=== PATIENT | male | born 1985 | race Caucasian/White ===

== ENCOUNTER 2024-05-29 10:40 | Outpatient (AMB) | payer OTHER, SELFPAY ==
--- NOTE | 2024-05-29 10:52 | MHC.PC.OV ---
Vital Signs 05/29/24 10:59 Height 5 ft 9 in Weight 193 lb 8 oz BMI 28.6 BP 100/60 Blood Pressure Location Lt brachial Position Sitting Respiration 14 Pulse 90 Pulse Source Pulse Oximeter Temp 98.1 F Temp Source Oral Pulse Oximetry (%) 99 Oxygen Delivery Method Room Air Intake Visit Reasons: TIMERS INSPECTOR/PE Intake Note: establish care Allergies Sulfa (Sulfonamide Antibiotics) Allergy (Intermediate, Verified 05/29/24 10:53) Hives Tobacco use date assessed: 05/29/24 Dental Screening Dental Screen Date: 05/29/24 Did you have a dental visit in the last 12 months?: Yes Did you have a dental problem in the last 6 months where you did not have access to dental care?: No HPI HPI Comments History of Present Illness Details This is a 38-year-old male with a past medical history of alcohol abuse and increase weight presenting to [facility] with me and have a physical exam. He transferred from [facility] primary care. He is overall doing well. He reports no hospitalizations or ER visits. He is working as a stationary equipment mechanic. He has been vaping for years, but he does not smoke cigarettes. He does smoke marijuana. We discussed the impact of vaping on his health, and I encouraged cessation. He previously drank alcohol heavily on and off since high school, but he stopped in 2016 when he noticed he got shaky when he did not drink. Now he only occasionally has a beer or 2. He endorses right knee pain for a couple of years. Pain is intermittent. It bothers him more when he is standing on his feet all day and walking. Sometimes it pops. It has not given out. He denies trauma. No swelling or redness. No numbness or tingling. The patient's PHQ-9 is mildly positive, but he denies depression, and he is not interested in referral or treatment. His last eye exam was Summer 2023. He sees the dentist every 3 months. Declines flu vaccine. He had a tetanus vaccine February 2024 when he required stitches. He received 2 covid-19 vaccines and a booster. ROS: Constitutional: No unexplained weight loss, fever, chills, fatigue or night sweats. Eyes: No vision changes, blurry vision, double vision, eye pain, eye redness, eye discharge. ENT: No hearing loss, sneezing, congestion, runny nose or sore throat. Respiratory: No shortness of breath, cough or sputum production. Cardiovascular: No chest pain, chest pressure or chest discomfort. No palpitations or pedal edema. Gastrointestinal: No anorexia, nausea, vomiting or diarrhea. No abdominal pain or blood in stool. Genitourinary: No dysuria, hematuria, urinary frequency. Denies testicular masses, swelling and pain in the groin. Neurologic: No headache, dizziness, syncope, unilateral weakness, ataxia, numbness or tingling in the extremities. Musculoskeletal: See HPI Hematologic/Lymphatics: No bleeding or bruising. No painful lymph nodes. Skin: No rash or itching. Endocrine: No cold or heat intolerance. No polyuria or polydipsia. Psychiatric: No depression or anxiety. No SI/HI. Physical exam: Constitutional: Alert, in no distress. Head: Normocephalic. Eyes: Pupils are equal, round and reactive to light. Extraocular muscles intact. Ear, Nose and Throat: Canals clear. TMs normal. Normal nasal mucosa. No nasal discharge. No oral lesions. Neck: Supple, Full range of motion. No lymphadenopathy. No palpable thyroid masses. Respiratory: Clear to auscultation. Cardiovascular: S1 S2 regular. No murmurs. Gastrointestinal: Abdomen soft, non-tender, non-distended. Normal bowel sounds. No palpable masses. Genitourinary: Patient declined exam. Neurologic: No focal neurological deficits. Symmetric patellar reflexes. Moves all extremities spontaneously. Sensation intact bilaterally. Skin: No rashes or lesions. Musculoskeletal: Mild right knee crepitus. Full range of motion of the knees. Knee strength 5/5 bilaterally. Negative Karan's maneuver bilaterally. Normal gait. Extremities: Warm and well perfused. No clubbing, cyanosis or edema. 3+ peripheral pulses bilaterally. Psychiatric: Normal mood and affect [facility] Medical History (Updated 05/29/24 @ 11:45 by KAYLIE Teixeira) Engages in vaping History of alcohol abuse Right knee pain Routine physical examination Screening for cardiovascular condition Concussion Surgical History (Updated 05/29/24 @ 11:23 by KAYLIE Teixeira) Hx of hernia repair Family History (Updated 05/29/24 @ 10:58 by Adan Banerjee CMA) Father Lung cancer Tourette disorder Mother Heart problem Arthritis Social History Housing: House Patient Tobacco Use Status: Never used Tobacco e-Cigarette/Vaping Use: Currently Using Second Hand Smoke Exposure: No service: No Current occupational status: employed Current occupation: [employer] Current occupational exposures/hazards: Yes Cognitive needs: No Hearing needs: No Vision needs: Yes Questionnaire PHQ-9 Over the last 2 weeks, how often have you been bothered by any of the following problems? 1. Little interest or pleasure in doing things: several days 2. Feeling down, depressed, or hopeless: several days 3. Trouble falling or staying asleep, or sleeping too much: more than half the days 4. Feeling tired or having little energy: not at all 5. Poor appetite or overeating: not at all 6. Feeling bad about yourself - or that you are a failure or have let yourself or your family down: several days 7. Trouble concentrating on things, such as reading the newspaper or watching television: several days 8. Moving or speaking so slowly that other people could have noticed. Or the opposite - being so fidgety or restless that you have been moving around a lot more than usual: not at all 9. Thoughts that you would be better off or of hurting yourself in some way: not at all Total score: 6 Depression Screening Interpretation: Positive Depression Screening Done: Yes 49587 - PHQ-9 Billing: Yes Source: Developed by Drs. Edgard Moreno, Corina Gonzalez, Farhat Solomon and colleagues, with an educational natasha from [employer]. Thrive Questionnaire Date Thrive assessed: 05/29/24 I am a: Patient What is your living situation today?: I have a steady place to live Within the past 12 months, did the food you bought not last and you didn't have the money to get more?: Never true Within the past 12 months, did you worry whether your food would run out before you got money to buy more?: Never true Do you have trouble paying for medicines?: No Do you have trouble getting transportation to medical appointments?: No Do you have trouble paying your heating and electricity bill?: No Do you have trouble taking care of your child, family member or friend?: No Do you have trouble with day-to-day activities such as bathing, preparing meals, shopping, managing finances, etc.?: No Are you currently unemployed and looking for a job?: No Are you interested in more education?: No Please select the resources that you would like help with: None Currently or been in a relationship where the following occur: No concerns reported THRIVE Score: 0 AUDIT C Alcohol Use Questionnaire (AUDIT-C) 1. How often do you have a drink containing alcohol?: 2-4 times a month 2. How many drinks containing alcohol do you have on a typical day when you are drinking?: 1 or 2 3. How often do you have six or more drinks on one occasion?: Never Total Score: 2 CHANDAN-7 AMB Questionnaire CHANDAN-7 Date CHANDAN - 7 assessed: 05/29/24 Feeling nervous, anxious, or on edge: 1 = Several days Not being able to stop or control worryin = Several days Worrying too much about different things: 1 = Several days Trouble relaxin = Several days Being so restless that it is hard to sit still: 1 = Several days Becoming easily annoyed or irritable: 1 = Several days Feeling afraid as if something awful might happen: 0 = Not at all Total CHANDAN-7 score (0-4 normal; 5-9 mild; 10-14 moderate; 15-21 severe): 6 Source: Developed by Drs. Edgard Moreno, Corina Gonzalez, Farhat Solomon and colleagues, with an educational natasha from [employer]. CHANDAN-7 Assessment Billing CHANDAN-7 Assessment Tool: CHANDAN-7 Assessment 82772 Physical exam (Primary Care) Vital Signs: Last Vital Signs Temp 98.1 F 05/29/24 10:59 Pulse 90 05/29/24 10:59 Resp 14 05/29/24 10:59 BP 100/60 05/29/24 10:59 Pulse Ox 99 05/29/24 10:59 Oxygen Delivery Method Room Air 05/29/24 10:59 BMI result Body Mass Index 28.6 Tobacco/Smoking Status: Tobacco use Status Tobacco use date assessed 05/29/24 05/29/24 11:01 Patient Tobacco Use Status Never used Tobacco 05/29/24 11:01 e-Cigarette/Vaping Use Currently Using 05/29/24 11:01 PHQ-9: PHQ-9 Score PHQ-9: Total score 6 05/29/24 11:21 Depression Screening Interpretation: Positive Thrive Assessment: Date of Thrive Assessment Date Thrive assessed 05/29/24 05/29/24 11:01 Currently or been in a relationship where the following occur: No concerns reported Coding Level of Care Code Est Pt Prev Care 40-64y(62431) Diagnoses Routine physical examination Z00.00 History of alcohol abuse F10.11 Right knee pain M25.561 Engages in vaping Z72.89 Additional Codes CHANDAN-7 Assessment Billing - CHANDAN-7 Assessment Tool: CHANDAN-7 Assessment 76513 ([id number]) PHQ-9 - 91914 - PHQ-9 Billing: Yes ([id number]) Assessment & Plan Assessment & Plan (1) Routine physical examination: Code(s): Z00.00 - Encounter for general adult medical examination without abnormal findings Category: Medical Plan: Patient is seen today for a routine physical. As part of this visit we reviewed the following issues, which are considered and essential part of preventative health in this age group: - Testicular cancer screening, which includes self exam teaching - Screening for colon cancer - denies family history. Initial screening at age 43 with colonoscopy. - Discussed Prostate cancer screening - Blood pressure screening - Cholesterol screening - Nutritional and exercise counseling - Counseling of injury prevention including fire prevention, smoke alarms and seat belt usage - Screening for depression - Prevention of and/or testing for infectious diseases - patient declined screening tests - Education about skin cancer - Recommendations about immunizations - Recommendation of an eye exam - Screening for substance abuse (2) History of alcohol abuse: Code(s): F10.11 - Alcohol abuse, in remission Category: Medical Plan: I congratulated patient on the change he may to his lifestyle. He only drinks lightly if at all now. We will check liver function tests and liver ultrasound with elastography. (3) Right knee pain: Code(s): M25.561 - Pain in right knee Category: Medical Plan: X ray ordered. We will consider referral to physical therapy pending results. (4) Engages in vaping: Code(s): Z72.89 - Other problems related to lifestyle Category: Medical Plan: We discussed the dangers of vaping and I recommended cessation. Plan Follow up in 1 year for annual physical exam. Orders: Orders Lipid Panel Today E66.3 - Overweight, Z00.00 - Encounter for general adult medical examination without abnormal findings, Z13.6 - Encounter for screening for cardiovascular disorders Comprehensive Met. Panel Today E66.3 - Overweight, Z00.00 - Encounter for general adult medical examination without abnormal findings, Z13.6 - Encounter for screening for cardiovascular disorders TSH reflex Free T4 Today E66.3 - Overweight, Z00.00 - Encounter for general adult medical examination without abnormal findings, Z13.6 - Encounter for screening for cardiovascular disorders US abdomen delacruz w elastography Today F10.11 - Alcohol abuse, in remission Complete Blood Count no Diff Today E66.3 - Overweight, Z00.00 - Encounter for general adult medical examination without abnormal findings, Z13.6 - Encounter for screening for cardiovascular disorders Prostate Specific Antigen Today E66.3 - Overweight, Z00.00 - Encounter for general adult medical examination without abnormal findings, Z12.5 - Encounter for screening for malignant neoplasm of prostate, Z13.6 - Encounter for screening for cardiovascular disorders XR knee RT 2V Today M25.561 - Pain in right knee
[2024-05-29 10:59] VITALS: BP 100/60; PULSE 90; RESP 14; TEMP 36.7; O2SAT 99; BMI 28.6
== END 2024-05-29 11:37 | disposition home or self-care (01) ==
PROVIDERS: PCP Physician Assistant Medical; Visit Provider Physician Assistant Medical
DX: Z00.00 Encounter for general adult medical examination without abnormal findings (principal); F10.11 Alcohol abuse, in remission; M25.561 Pain in right knee; Z72.89 Other problems related to lifestyle

== ENCOUNTER → 2024-05-29 10:40 | Outpatient (BNVA) | payer OTHER, SELFPAY | PROVIDERS: PCP Physician Assistant Medical; Visit Provider Physician Assistant Medical | DX: Z00.01 Encounter for general adult medical examination with abnormal findings (principal); M25.561 Pain in right knee; F10.11 Alcohol abuse, in remission; Z72.89 Other problems related to lifestyle | CPT/HCPCS: 96127 ==

== ENCOUNTER 2024-05-29 11:42 | Outpatient (REF) | payer OTHER, SELFPAY ==
[2024-05-29 14:24] LABS: Hematocrit 44.9 % (42.0-52.0); Hemoglobin 15.3 g/dl (14.0-18.0); Mean Corpuscular HGB Conc 34.1 g/dl (31.0-36.0); Mean Corpuscular Hemoglobin 31.4 pg (27.0-33.0); Mean Platelet Volume 9.4 fL (9.4-12.4); Platelet Count 287 X10*3/uL (160-400); Red Blood Count 4.88 X10*6/uL (4.60-5.80); Red Cell Distribution Width 12.1 % (11.0-16.0); White Blood Count 7.6 X10*3/uL (4.8-10.8)
[2024-05-29 14:58] LABS: Alanine Aminotransferase 25 U/L (0-40); Albumin Level 4.6 g/dL (3.5-5.0); Alkaline Phosphatase 60 U/L (39-117); Anion Gap 10 (12-20); Aspartate Amino Transferase 23 U/L (5-37); Bilirubin Total 0.8 mg/dL (0.0-1.0); Blood Urea Nitrogen 12 mg/dL (9-16); Calcium 9.7 mg/dL (8.4-10.2); Carbon Dioxide 29 mmol/L (22-29); Chloride 105 mmol/L (96-108); Cholesterol 216 mg/dL (<200); Estimated Glomerular Filt Rate > 60; Glucose Random 91 mg/dL (60-115); HDL Cholesterol 74 mg/dL (>40); LDL Cholesterol Calculated 129 mg/dL (<100); Potassium 3.9 mmol/L (3.3-5.1); Sodium 140 mmol/L (135-145); Total Protein 7.6 g/dL (6.5-8.0); Triglycerides 69 mg/dL (<150)
[2024-05-29 15:12] LABS: Prostate Specific Antigen 1.05 ng/mL (<0.05-4.0)
[2024-05-29 15:16] LABS: TSH reflex Free T4 0.56 uIU/mL (0.32-4.0)
== END 2024-05-29 11:43 | disposition home or self-care (01) ==
LOC: HO.WFDLDS 11:42
PROVIDERS: Visit Provider Physician Assistant Medical
DX: Z13.6 Encounter for screening for cardiovascular disorders (principal); E66.3 Overweight; Z12.5 Encounter for screening for malignant neoplasm of prostate; Z00.00 Encounter for general adult medical examination without abnormal findings
CPT/HCPCS: 36415; 80053; 80061; 84153; 84443; 85027